=== PATIENT | female | born 1945 | race Caucasian/White ===

== ENCOUNTER 2020-02-26 15:51 | Emergency (ER) | payer OTHER ==
[~2020-02-26 15:51] MED LIST: ALPHAGAN P OP SO5 ML EYEBOTH; CRESTOR10 MG PO; DORZOLAMIDE-TIM10 ML OP; LISINOPRIL-HCT1 EAC1 PO; MYCOSTATIN100000 UTS PO; OXYBUTYNIN CHLOR5 MG PO; RITALIN5 MG PO; SERTRALINE HCL25 MG PO; WEEKLY-D1250 MCG PO
[2020-02-26 19:57] LABS: RED BLOOD COUNT 4.64 M/UL (4.00-5.10); WHITE BLOOD COUNT 9.6 K/UL (4.5-11.0)
[2020-02-26 20:17] LABS: BUN/CREATININE RATIO 24 (0-10)
[2020-02-26] MEDS ORDERED: VANCOMYCIN HCL125 MG PO (22:44)
[2020-02-26] MEDS ORDERED: FLORASTOR250 MG PO (22:44)
[2020-02-26] MEDS ORDERED: ZOFRAN ODT 4 MG4 MG PO (22:44)
[2020-02-26] MEDS ORDERED: BENTYL 20MG TAB20 MG PO (22:44)
== END 2020-02-26 23:09 | disposition home or self-care (01) ==
LOC: ER1 15:51
PROVIDERS: Physician Assistant
DX: A04.72 Enterocolitis due to Clostridium difficile, not specified as recurrent (principal)
CPT/HCPCS: 51701; 80053; 81001; 83690; 85025; 87086; 96374; 96375; 99284; J2405; J3370; Q9967

== ENCOUNTER 2020-03-29 15:58 | Inpatient (IN) | payer OTHER ==
[~2020-03-29] VITALS: Ht 157.5 cm; Wt 54.0 kg
[~2020-03-29 15:58] MED LIST changes: +BENTYL 20MG TAB20 MG PO; +FLORASTOR250 MG PO; +VANCOMYCIN HCL125 MG PO; +ZOFRAN ODT 4 MG4 MG PO
[2020-03-29 19:49] LABS: BUN/CREATININE RATIO 29 (0-10)
[2020-03-29 20:22] LABS: HEMOGLOBIN 11.5 gm/dl (12.3-15.3); RED BLOOD COUNT 4.01 M/UL (4.00-5.10); WHITE BLOOD COUNT 11.9 K/UL (4.5-11.0)
[2020-03-29] MEDS ORDERED: NEURONTIN100 MG PO (23:40)
[2020-03-29] MEDS ORDERED: HYDROXYZINE HCL10 MG PO (23:41)
[2020-03-31 06:10] LABS: HEMOGLOBIN 10.7 gm/dl (12.3-15.3); RED BLOOD COUNT 3.73 M/UL (4.00-5.10); WHITE BLOOD COUNT 8.5 K/UL (4.5-11.0)
[2020-03-31 06:43] LABS: BUN/CREATININE RATIO 20 (0-10)
[2020-04-02 03:28] LABS: WHITE BLOOD COUNT 7.6 K/UL (4.5-11.0)
[2020-04-02 03:35] LABS: RED BLOOD COUNT 3.18 M/UL (4.00-5.10)
[2020-04-02 03:46] LABS: BUN/CREATININE RATIO 8 (0-10)
[2020-04-03 03:14] LABS: HEMOGLOBIN 10.5 gm/dl (12.3-15.3); RED BLOOD COUNT 3.68 M/UL (4.00-5.10); WHITE BLOOD COUNT 6.9 K/UL (4.5-11.0)
[2020-04-03 03:31] LABS: BUN/CREATININE RATIO 8 (0-10)
[2020-04-05 06:06] LABS: RED BLOOD COUNT 3.88 M/UL (4.00-5.10); WHITE BLOOD COUNT 7.7 K/UL (4.5-11.0)
[2020-04-05 06:55] LABS: BUN/CREATININE RATIO 14 (0-10)
[2020-04-05] MEDS ORDERED: MEGACE 400400 MG/10 PO (12:05)
[2020-04-05] MEDS ORDERED: VITAMIN B-1100 M1 PO (12:05)
[2020-04-05] MEDS ORDERED: K-DUR TAB 20 M20 MEQ PO (12:05)
[2020-04-05] MEDS ORDERED: THERAGRAN M TAB1 EA PO (12:05)
[2020-04-05] MEDS ORDERED: QUETIAPINE FUMA25 MG PO (12:05)
[2020-04-05] MEDS ORDERED: LISINOPRIL10 MG PO (12:05)
[2020-04-05] MEDS ORDERED: VANCOMYCIN HCL250 MG PO (12:05)
[2020-04-05] MEDS ORDERED: FERROUS SULFAT325 M2 PO (12:05)
[2020-04-05] MEDS ORDERED: FOLIC ACID 1 MG1 MG PO (12:05)
[2020-04-05 16:38] LABS: BUN/CREATININE RATIO 14 (0-10)
== END 2020-04-05 17:15 | disposition home or self-care (01) | DRG 371 ==
LOC: ER1 15:58 → CDU 22:05 → MED SURG 4 22:05
PROVIDERS: Internal Medicine; Physician Assistant; ADMIT Internal Medicine
DX: A04.72 Enterocolitis due to Clostridium difficile, not specified as recurrent (principal); E43 Unspecified severe protein-calorie malnutrition; G93.41 Metabolic encephalopathy; N39.0 Urinary tract infection, site not specified; E86.0 Dehydration; Z86.16 Personal history of COVID-19; E87.6 Hypokalemia; E78.5 Hyperlipidemia, unspecified; I10 Essential (primary) hypertension; Z68.21 Body mass index [BMI] 21.0-21.9, adult; H40.9 Unspecified glaucoma; F32.9 Major depressive disorder, single episode, unspecified; F41.9 Anxiety disorder, unspecified; G62.9 Polyneuropathy, unspecified; D64.9 Anemia, unspecified; L89.152 Pressure ulcer of sacral region, stage 2
CPT/HCPCS: 36415; 70450; 71045; 80048; 80053; 81001; 82550; 82553; 82728; 83540; 83550; 83690; 83735; 83874; 84132; 84439; 84443; 84484; 85025; 87324; 87449; 93005; 96365; 97162; 97166; 99285; J0696; J1650; J3480; J7030; U0002

== ENCOUNTER 2020-05-20 21:07 | Emergency (ER) | payer OTHER ==
[~2020-05-20 21:07] MED LIST changes: +FERROUS SULFAT325 M2 PO; +FOLIC ACID 1 MG1 MG PO; +HYDROXYZINE HCL10 MG PO; +K-DUR TAB 20 M20 MEQ PO; +LISINOPRIL10 MG PO; +MEGACE 400400 MG/10 PO; +NEURONTIN100 MG PO; +QUETIAPINE FUMA25 MG PO; +THERAGRAN M TAB1 EA PO; +VANCOMYCIN HCL250 MG PO; +VITAMIN B-1100 M1 PO
[2020-05-20 22:28] LABS: HEMOGLOBIN 11.6 gm/dl (12.3-15.3); RED BLOOD COUNT 4.09 M/UL (4.00-5.10); WHITE BLOOD COUNT 6.3 K/UL (4.5-11.0)
[2020-05-20 22:52] LABS: BUN/CREATININE RATIO 15 (0-10)
[2020-05-21] MEDS ORDERED: BLOOD TEST (01:42)
== END 2020-05-21 02:05 | disposition home or self-care (01) ==
LOC: ER1 21:07
PROVIDERS: Physician Assistant
DX: E87.6 Hypokalemia (principal); I10 Essential (primary) hypertension; Z87.440 Personal history of urinary (tract) infections
CPT/HCPCS: 70450; 71045; 80053; 81001; 82550; 82553; 83874; 84484; 85025; 93005; 99285